=== PATIENT | male | born 1965 | race Caucasian/White ===

== ENCOUNTER 2020-12-29 11:22 | Outpatient (CLI) | payer BC, SELFPAY ==
--- NOTE | ~2020-12-29 | US_ITS ---
EXAMINATION: US venous doppler [facility] DATE: 12/29/2020 11:57 INDICATION: Lower limb pain. TECHNIQUE: Grayscale ultrasound images without and with compression and Doppler ultrasound images of the bilateral lower extremity veins were obtained. COMPARISON: None. FINDINGS: The visualized portions of right common femoral vein, profunda (deep) femoral vein, femoral vein, pop liteal vein, peroneal veins, posterior tibial veins, and greater saphenous vein outflow are patent. The visualized portions of left common femoral vein, profunda femoral vein, femoral vein, popliteal v ein, peroneal veins, posterior tibial veins, and greater saphenous vein outflow are patent. IMPRESSION: 1. No deep venous thrombosis. Reviewed, dictated and finalized at location A.
== END 2020-12-29 11:23 | disposition home or self-care (01) ==
PROVIDERS: PCP Family Medicine; Visit Provider Family Medicine
DX: M79.606 Pain in leg, unspecified (principal); M79.89 Other specified soft tissue disorders
CPT/HCPCS: 93970

== ENCOUNTER → 2021-06-06 09:47 | Outpatient (CLI) | payer BC, SELFPAY ==
--- NOTE | ~2021-06-06 | XR_ITS ---
XR hip BI wo pelvis DATE: 06/06/2021 10:28 INDICATION: Low back pain, left sciatica, bilateral hip pain TECHNIQUE: AP and lateral views of each hip COMPARISON: None FINDINGS: There is mild loss of left hip joint space and mild degenerative spurring of the left femor al head consistent with mild osteoarthritis. No fracture or dislocation, avascular necrosis or bone destruction of either hip is detected. The pub ic symphysis and sacral iliac joints are intact. Degenerative disc disease is noted at L3-4 and to a greater extent L4-5 and L5-S1. IMPRESSION: Mild left hip osteoarthritis Multilevel degenerative disc disease of the lumbar spine Reviewed, dictated and finalized at location B. [employer]
--- NOTE | ~2021-06-06 | MR_ITS ---
EXAMINATION: MR lumbar spine wo con DATE: 06/06/2021 10:38 INDICATION: Lumbago. Left-sided sciatica. TECHNIQUE: Magnetic resonance imaging (MRI) of the lumbar spine was performed without intravenous con trast. Sequences included sagittal T2-weighted FSE, sagittal T2-weighted FS FSE, sagittal T1-weighted FSE, and axial T2-weighted FSE. COMPARISON: Lumbar spine MRI 06/09/2016 FINDINGS: There is 5 degrees dextrocurvature of thoracolumbar spine. There is mild chronic anterior w edging of T12 and L1 vertebral bodies. There are Schmorl's nodes from T11-T12 through L1-L2. There is severely decreased disc height at L4-L5 and L5-S1 with endplate remodeling. The distal spinal cord s ignal intensity is normal. The conus medullaris is at T12-L1. The following disc levels are specifica lly discussed: L1-L2: The disc does not extend beyond the endplate margin. There is mild bilateral facet joint osteo arthritis. There is no neural foraminal stenosis. There is no central canal stenosis. L2-L3: The disc is bulging with superimposed central extrusion. There is mild bilateral facet joint o steoarthritis. There is mild bilateral neural foraminal stenosis. There is mild central canal stenosi s. L3-L4: The disc is bulging and has an annular fissure. There is mild bilateral facet joint osteoarthr itis. There is moderate bilateral neural foraminal stenosis. There is mild central canal stenosis. L4-L5: The disc is bulging and has an annular fissure. There is moderate bilateral facet joint osteoa rthritis. There is moderate bilateral neural foraminal stenosis. There is mild central canal stenosis . L5-S1: The disc is bulging with superimposed left central extrusion. There is mild bilateral facet sagar int osteoarthritis. There is moderate bilateral neural foraminal stenosis. There is mild central randall l stenosis. IMPRESSION: 1. Severe lumbar spondylosis with improvement extrusion at L5-S1. Reviewed, dictated and finalized at location A. [employer]
== END ==
PROVIDERS: PCP Family Medicine; Visit Provider Family Medicine
DX: M54.42 Lumbago with sciatica, left side (principal); G89.29 Other chronic pain; M54.41 Lumbago with sciatica, right side; M16.12 Unilateral primary osteoarthritis, left hip; M51.36 Other intervertebral disc degeneration, lumbar region; M47.816 Spondylosis without myelopathy or radiculopathy, lumbar region
CPT/HCPCS: 72148; 73521

== ENCOUNTER → 2021-12-04 07:05 | Outpatient (REF) | payer BC, SELFPAY | LOC: ANHLAB 07:05 | PROVIDERS: PCP Family Medicine; Visit Provider Surgery Plastic and Reconstructive Surgery | DX: C44.310 Basal cell carcinoma of skin of unspecified parts of face (principal) | CPT/HCPCS: 88305; 88331 ==

== ENCOUNTER → 2023-05-30 12:12 | Outpatient (CLI) | payer BC, SELFPAY ==
--- NOTE | ~2023-05-30 | XR_ITS ---
Clinical Indication: Cough PA and lateral views of the chest: Comparison: None Findings: Calcified right apical granuloma noted. The lungs are otherwise clear, without evidence of focal consolidation or pleural effusion. Cardiomediastinal silhouette is within normal limits. Bones and soft tissues are unremarkable, aside from left shoulder arthroplasty. Impression: No significant abnormality. Reviewed, dictated and finalized at location . [employer] Impression: No significant abnormality.
== END ==
PROVIDERS: PCP Family Medicine; Visit Provider Family Medicine
DX: R05.9 Cough, unspecified (principal)
CPT/HCPCS: 71046

== ENCOUNTER 2024-01-28 10:36 | Outpatient (CLI) | payer BC, SELFPAY ==
--- NOTE | ~2024-01-28 | XR_ITS ---
Left wrist Technique: PA, oblique, lateral, and ulnar deviation views were obtained. Clinical History: Osteoarthritis Findings: No acute fracture or dislocation is seen. Osseous alignment is anatomic. Joint spaces are p reserved. Soft tissues are unremarkable. Impression: Unremarkable left wrist radiographs. Reviewed, dictated and finalized at location . Impression: Unremarkable left wrist radiographs.
--- NOTE | ~2024-01-28 | XR_ITS ---
Left Hand Technique: PA, oblique, and lateral views were obtained. Clinical History: Osteoarthritis Findings: No acute fracture or dislocation is seen. Osseous alignment is anatomic. Joint spaces are p reserved. Soft tissues are unremarkable. Impression: Unremarkable left hand. Reviewed, dictated and finalized at location M. Impression: Unremarkable left hand.
--- NOTE | ~2024-01-28 | XR_ITS ---
Right Knee Technique: AP, lateral, and sunrise views were obtained. Clinical History: Osteoarthritis Findings: No fracture or dislocation is seen. Osseous alignment is anatomic. Joint spaces are preserv ed without degenerative or erosive change. Soft tissues are unremarkable. No joint effusion is seen. Impression: Unremarkable right knee radiographs. Reviewed, dictated and finalized at location . Impression: Unremarkable right knee radiographs.
== END 2024-01-28 10:37 | disposition home or self-care (01) ==
PROVIDERS: PCP Family Medicine; Visit Provider Pain Medicine Pain Medicine
DX: M18.0 Bilateral primary osteoarthritis of first carpometacarpal joints (principal)
CPT/HCPCS: 73110; 73130; 73564

== ENCOUNTER 2024-02-03 15:32 | Outpatient (CLI) | payer BC, SELFPAY ==
--- NOTE | ~2024-02-03 | MR_ITS ---
MRI of the lumbar spine Clinical History: Radiculopathy Technique: Axial T2-weighted images, and sagittal T1-weighted, T2-weighted, and and T2 fat-sat images were acquired. Following intravenous administration of 18 cc MultiHance gadolinium, T1-weighted fat- sat imaging was performed in the axial and sagittal planes. Findings: No fracture seen. There is minimal grade 1 retrolisthesis of L5 over S1. No suspicious bone marrow signal abnormality seen. At L1-L2, there is disc extrusion centrally extending superiorly, behind the L1 vertebral body. There is mild effacement of the ventral thecal sac. No billy canal stenosis. There is moderate facet arthr opathy. Bilateral neural foramina are preserved. At L2-L3, there is diffuse disc bulge with moderate to advanced facet arthropathy. No central canal s tenosis. There is mild bilateral neural foraminal narrowing. L3-L4, there is diffuse disc bulge with moderate facet arthropathy. No central canal stenosis. There is moderate bilateral neural foraminal narrowing. At L4-L5, there is diffuse disc bulge with moderate facet arthropathy. No billy central canal stenosi s. There is severe right neural foraminal narrowing. Left neural foramen is minimally narrowed. L5-S1, there is moderate degenerative disc narrowing. There is diffuse disc bulge with moderate facet arthropathy. There is severe bilateral neural foraminal narrowing. Paravertebral soft tissues are unremarkable. No abnormal postcontrast enhancement identified. Impression: Central disc extrusion/herniation at L1-L2, extending superiorly behind the S1 vertebral body. Moderate degenerative spondylosis otherwise, as detailed above, with multilevel neural foraminal narr owing. Reviewed, dictated and finalized at [facility]. Impression: Central disc extrusion/herniation at L1-L2, extending superiorly behind the S1 vertebral body. Moderate degenerative spondylosis otherwise, as detailed above, with multilevel neural foraminal narrowing.
== END 2024-02-03 15:33 | disposition home or self-care (01) ==
LOC: ANHIMG 15:36
PROVIDERS: PCP Family Medicine; Visit Provider Pain Medicine Pain Medicine
DX: M51.26 Other intervertebral disc displacement, lumbar region (principal); M47.896 Other spondylosis, lumbar region; M47.897 Other spondylosis, lumbosacral region
CPT/HCPCS: 72158; A9577